=== PATIENT | male | born 1995 | race Caucasian/White ===

== ENCOUNTER 2017-02-01 19:34 | Emergency (ER) | payer SELFPAY ==
[~2017-02-01] VITALS: Ht 185.4 cm; Wt 68.0 kg
[~2017-02-01 19:34] MED LIST: CYCL5TAB PO; IBUP600T26 PO; Z.0.NO CURRENT MEDS
[2017-02-01 19:36] VITALS: BP 142/96; PULSE 80; RESP 14; TEMP 99; O2SAT 100
[2017-02-01] MEDS ORDERED: PRIL20CA9 PO (20:04)
== END 2017-02-01 21:35 | disposition left against medical advice (07) ==
LOC: NED 19:34
DX: R31.9 Hematuria, unspecified (principal)
CPT/HCPCS: 99281